=== PATIENT | male | born 1930 | race Caucasian/White ===

== ENCOUNTER 2017-03-11 23:36 | Inpatient (IN) | payer MEDICARE, OTHER ==
[2017-03-12] MEDS ORDERED: NS 0.9% 1000 ML* 1,000 ML IV SCH ×2 (00:30→04:15)
[2017-03-12] MEDS ORDERED: cefTRIAXone(*) 1 GM in NS 0.9% 50 ML* 50 ML IVPB ONE (01:24)
[2017-03-12] MEDS ORDERED: Azithromycin IV(*) 500 MG in NS 0.9% 250 ML* 250 ML IVPB ONE (01:24)
[2017-03-12 01:51] LABS: Hematocrit 36 % (42-52); Hemoglobin 11.5 g/dl (14.0-18.0); Mean Corpuscular HGB Conc 32 g/dl (31-36); Mean Corpuscular Hemoglobin 26 pg (27-31); Mean Corpuscular Volume 79 fL (80-94); Mean Platelet Volume 7 um3 (7.4-10.4); Red Cell Distribution Width 18 % (10.5-15); White Blood Count 8.4 10^3/ul (3.5-10.8)
[2017-03-12 01:52] LABS: Add Diff/Slide Review? Slide Review Added; Comments Flag Yes
[2017-03-12 02:02] LABS: Albumin 3.2 g/dL (3.2-5.2); BUN/Creatinine Ratio 17.9 (8-20); C Reactive Protein 48.92 mg/L (< 5.00); Calcium 8.6 mg/dL (8.6-10.3); EGFR African American 61.9 (>60); EGFR Non-African American 48.2 (>60); Globulin 2.6 g/dL (2-4); Magnesium 1.2 mg/dL (1.9-2.7); Potassium 3.7 mmol/L (3.5-5.0); Total Bilirubin 1.3 mg/dL (0.2-1.0); Total Protein 5.8 g/dL (6.4-8.9)
[2017-03-12 02:06] LABS: Troponin I 0.04 ng/mL (<0.04)
[2017-03-12] MEDS ORDERED: Magnesium Sulfate 2 GM IV* 2 GM/50 ML BAG IVPB ONE (02:29)
--- NOTE | 2017-03-12 02:36 | ED ---
Jeanette Carroll Salem, scribed for Yazan Duffy MD on 03/12/17 at 0016 . Syncope/Near Syncope - HPI Summary HPI Summary: Patient is a 86 y/o M who presents to the ED per EMS with weakness since earlier today. His reports that he usually walks with a walker, but today his legs gave out and he fell. She denies trauma, head injury, or LOC, but reports prolonged loss of appetite. Pt has a hx of cataract surgery. states that she does not want him to be checked into a senior living. - History Of Current Complaint Chief Complaint: EDGeneral Hx Obtained From: Family/Printed [employer] Designer - . Onset/Duration: Gradual Onset, Lasting Hours, Still Present Timing: Constant Context: Witnessed Activity At Onset: Other - Walking. Associated Head Trauma: No Aggravating Factor(s): Nothing Alleviating Factor(s): Nothing Associated Signs And Symptoms: Negative - Allergies/Home Medications Allergies/Adverse Reactions: Allergies Allergy/AdvReac Type Severity Reaction Status Date / Time ENVIRONMENTAL/SEASONAL AdvReac Intermediate Sneezing Uncoded 09/08/16 15:35 HAYFEVER PMH/Surg Hx/FS Hx/Imm Hx Endocrine/Hematology History: Reports: Hx Anticoagulant Therapy, Hx Diabetes Denies: Hx Thyroid Disease Cardiovascular History: Reports: Hx Congestive Heart Failure, Hx Coronary Artery Disease, Hx Hypercholesterolemia, Hx Hypertension, 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), Other Cardiovascular Problems/ Disorders - avr bovine replacement Denies: Hx Peripheral Vascular Disease Respiratory History: Reports: Hx Pulmonary Edema, Hx Sleep Apnea - WEARS CPAP Q HS GI History: Reports: Hx Gastroesophageal Reflux Disease, Hx Hiatal Hernia History: Reports: Hx Kidney Stones Denies: Hx Renal Disease Musculoskeletal History: Reports: Hx Tendonitis - RIGHT SHOULDER Denies: Hx Arthritis, Hx Osteoporosis Sensory History: Reports: Hx Cataracts, Hx Contacts or Glasses, Hx Vision Problem, Hx Hearing Aid, Hx Hearing Problem Opthamlomology History: Reports: Hx Cataracts, Hx Contacts or Glasses, Hx Vision Problem Neurological History: Reports: Other Neuro Impairments/Disorders - HX OF SUBDURAL HEMATOMA 06/14/13 Denies: Hx Headaches, Hx Seizures, Hx Transient Ischemic Attacks (TIA) Psychiatric History: Reports: Hx Depression - Cancer History Cancer Type, Location and Year: SKIN CANCER EXCESION FROM [facility] - Surgical History Surgery Procedure, Year, and Place: TONSILLECTOMY AGE 21, [place]. 2002 [place]GUINAL [place] [facility] [place] RIGHT KNEE TOTAL REPLACEMENT, [facility] [place]. 2006 BILATERAL CATARACT EXTRACTION WITH IOL IMPLANT, [facility] [place]. 2005 COLONOSCOPY, [facility] [place]. 2007 & 2008 CARDIAC CATHERIZATION X 2, [facility] [place]. 2008 AORTIC VALVE REPLACEMENT, [facility]. 2007 ENDOSCOPY, [facility] [place]. 2012 SKIN CANCER REMOVED FROM [place] , [facility] [place]x Anesthesia Reactions: No - Immunization History Date of Tetanus Vaccine: Unk Date of Influenza Vaccine: Fall 2014 Infectious Disease History: No Infectious Disease History: Denies: Traveled Outside the [place] in Last 30 Days - Family History Known Family History: Positive: Other - EMPHYSEMA, CVA - Social History Alcohol Use: Occasionally Hx Substance Use: No Substance Use Type: Reports: None Hx Tobacco Use: Yes - QUIT IN 1969 Smoking Status (MU): Former Smoker Review of Systems Negative: Fever Positive: Other - Loss of appetite. Neurological: Other - No LOC. Positive: Weakness All Other Systems Reviewed And Are Negative: Yes Physical Exam Triage Information Reviewed: Yes Vital Signs On Initial Exam: Initial Vitals Temp Pulse Resp BP Pulse Ox 98.6 F 76 18 110/57 97 03/11/17 23:44 03/11/17 23:44 03/11/17 23:44 03/11/17 23:44 03/11/17 23:44 Vital Signs Reviewed: Yes Appearance: Positive: Well-Appearing, No Pain Distress Skin: Positive: Warm, Skin Color Reflects Adequate Perfusion, Dry Head/Face: Positive: Normal Head/Face Inspection Eyes: Positive: EOMI, VINCE ENT: Positive: Other - Hard of hearing. DMM. Neck: Positive: Supple, Nontender Respiratory/Lung Sounds: Positive: Clear to Auscultation, Breath Sounds Present Cardiovascular: Positive: RRR Abdomen Description: Positive: Nontender, Soft Bowel Sounds: Positive: Present Musculoskeletal: Positive: Other - Moves all extremities. Neurological: Positive: Normal, Sensory/Motor Intact, Alert, Oriented to Person Place, Time Psychiatric: Positive: Affect/Mood Appropriate Diagnostics - Vital Signs Vital Signs Temp Pulse Resp BP Pulse Ox 03/11/17 23:44 98.6 F 76 18 110/57 97 - Laboratory Lab Results: Lab Results 03/12/17 03/12/17 03/12/17 Range/Units 01:30 01:30 01:30 WBC 8.4 (3.5-10.8) 10^3/ul RBC 4.50 (4.0-5.4) 10^6/ul Hgb 11.5 L (14.0-18.0) g/dl Hct 36 L (42-52) % MCV 79 L (80-94) fL MCH 26 L (27-31) pg MCHC 32 (31-36) g/dl RDW 18 H (10.5-15) % Plt Count 277 (150-450) 10^3/ul MPV 7 L (7.4-10.4) um3 Neut % (Auto) 77.4 (38-83) % Lymph % (Auto) 11.3 L (25-47) % [place] % (Auto) 9.5 H (1-9) % Eos % (Auto) 0.9 (0-6) % Baso % (Auto) 0.9 (0-2) % Absolute Neuts (auto) 6.5 (1.5-7.7) 10^3/ul Absolute Lymphs (auto) 1.0 (1.0-4.8) 10^3/ul Absolute Monos (auto) 0.8 (0-0.8) 10^3/ul Absolute Eos (auto) 0.1 (0-0.6) 10^3/ul Absolute Basos (auto) 0.1 (0-0.2) 10^3/ul Absolute Nucleated RBC 0 10^3/ul Nucleated RBC % 0 INR (Anticoag Therapy) 1.12 H (0.89-1.11) APTT 30.7 (26.0-36.3) seconds Sodium 136 (133-145) mmol/L Potassium 3.7 (3.5-5.0) mmol/L Chloride 99 L (101-111) mmol/L Carbon Dioxide 28 (22-32) mmol/L Anion Gap 9 (2-11) mmol/L BUN 25 H (6-24) mg/dL Creatinine 1.40 H (0.67-1.17) mg/dL Est GFR ( Amer) 61.9 (>60) Est GFR (Non-Af Amer) 48.2 (>60) BUN/Creatinine Ratio 17.9 (8-20) Glucose 113 H (70-100) mg/dL Lactic Acid (0.5-2.0) mmol/L Calcium 8.6 (8.6-10.3) mg/dL Magnesium 1.2 L (1.9-2.7) mg/dL Total Bilirubin 1.30 H (0.2-1.0) mg/dL AST 225 H (13-39) U/L ALT 118 H (7-52) U/L Alkaline Phosphatase 122 H (34-104) U/L Total Creatine Kinase 21 (10-223) U/L CK-MB (CK-2) 1.1 (0.6-6.3) ng/mL Troponin I 0.04 H* (<0.04) ng/mL C-Reactive Protein 48.92 H (< 5.00) mg/L B-Natriuretic Peptide ( - 100) pg/mL Total Protein 5.8 L (6.4-8.9) g/dL Albumin 3.2 (3.2-5.2) g/dL Globulin 2.6 (2-4) g/dL Albumin/Globulin Ratio 1.2 (1-3) Lipase 13 (11.0-82.0) U/L TSH Pending 03/12/17 03/12/17 Range/Units 01:30 01:30 WBC (3.5-10.8) 10^3/ul RBC (4.0-5.4) 10^6/ul Hgb (14.0-18.0) g/dl Hct (42-52) % MCV (80-94) fL MCH (27-31) pg MCHC (31-36) g/dl RDW (10.5-15) % Plt Count (150-450) 10^3/ul MPV (7.4-10.4) um3 Neut % (Auto) (38-83) % Lymph % (Auto) (25-47) % [place] % (Auto) (1-9) % Eos % (Auto) (0-6) % Baso % (Auto) (0-2) % Absolute Neuts (auto) (1.5-7.7) 10^3/ul Absolute Lymphs (auto) (1.0-4.8) 10^3/ul Absolute Monos (auto) (0-0.8) 10^3/ul Absolute Eos (auto) (0-0.6) 10^3/ul Absolute Basos (auto) (0-0.2) 10^3/ul Absolute Nucleated RBC 10^3/ul Nucleated RBC % INR (Anticoag Therapy) (0.89-1.11) APTT (26.0-36.3) seconds Sodium (133-145) mmol/L Potassium (3.5-5.0) mmol/L Chloride (101-111) mmol/L Carbon Dioxide (22-32) mmol/L Anion Gap (2-11) mmol/L BUN (6-24) mg/dL Creatinine (0.67-1.17) mg/dL Est GFR ( Amer) (>60) Est GFR (Non-Af Amer) (>60) BUN/Creatinine Ratio (8-20) Glucose (70-100) mg/dL Lactic Acid 0.9 (0.5-2.0) mmol/L Calcium (8.6-10.3) mg/dL Magnesium (1.9-2.7) mg/dL Total Bilirubin (0.2-1.0) mg/dL AST (13-39) U/L ALT (7-52) U/L Alkaline Phosphatase (34-104) U/L Total Creatine Kinase (10-223) U/L CK-MB (CK-2) (0.6-6.3) ng/mL Troponin I (<0.04) ng/mL C-Reactive Protein (< 5.00) mg/L B-Natriuretic Peptide 263 H ( - 100) pg/mL Total Protein (6.4-8.9) g/dL Albumin (3.2-5.2) g/dL Globulin (2-4) g/dL Albumin/Globulin Ratio (1-3) Lipase (11.0-82.0) U/L TSH Result Diagrams: 03/12/17 01:30 03/12/17 01:30 Diagnostic Studies Comment: Trop 1: 0.04 Lab Statement: Any lab studies that have been ordered have been reviewed, and results considered in the medical decision making process. - Radiology CXR Radiology Interpretation Completed By: ED Physician - Right lower inflitrate. - CT BRAIN CT Interpretation Completed By: Radiologist - Impression: Area of low attenuation within the brainstem is nonspecific possibly reflecting an area of inflammation or mass. Follow-up MRI with vascular contrast and diffusion- weighted imaging is recommended for further evaluation. - EKG 0111 EKG Interpretation: A Fib @ [address] bpm with PVCs. No ST changes. Course/Dx Course Of Treatment: NO CRITICAL CARE TIME. ADMIT HOSPITALIST STABLE. - Diagnoses Provider Diagnoses: Weakness, Pneumonia - Physician Notifications Discussed Care of Patient With: Ghanshyam Maldonado Time Discussed With Above Provider: 02:01 Instructed by Provider To: Admit As Inpatient Admit/Transition Orders Completed By ED Provider: Yes Discharge - Discharge Plan Condition: Stable Disposition: ADMITTED TO [facility] Referrals: Lance Leonard MD [Primary Care Provider] - The documentation as recorded by the Jeanette salcedo Salem accurately reflects the service I personally performed and the decisions made by me, Yazan Duffy MD.
[2017-03-12 02:38] LABS: TSH (Thyroid Stimulating Horm) 3.2 mcIU/mL (0.34-5.60)
[2017-03-12] MEDS ORDERED: Dextrose 50% Syringe 50 ML* 25 GM/50 ML SYRINGE IV PUSH PRN (04:07)
[2017-03-12] MEDS: Heparin VIAL(*) 5000 UNITS/ML VIAL (FIVE THOUSAND) SUBCUT SCH ×3 (05:58→20:40)
--- NOTE | 2017-03-12 06:12 | HP ---
CC: Dr. Lance Leonard* HISTORY AND PHYSICAL: DATE OF ADMISSION: 03/12/17 PRIMARY CARE PHYSICIAN: Dr. Lance Leonard. CHIEF COMPLAINT: Weakness. HISTORY OF PRESENT ILLNESS: Please note that the entire history is gotten via the ER doctor as the is not here and cannot be contacted at this time and the patient himself is unable to give me any information. It is difficult to say if it is from his hearing or if he is having difficulty comprehending. Either way, he does not respond to my questions. The patient apparently has had weakness that has been getting worse and worse at home. He usually walks with a walker, but today apparently his legs finally gave out and he could not walk with his walker and his had to call EMS to take him to the ER. His is apparently very concerned because she says she is no longer able to care for him appropriately and she does want him in a intermediate and gets very tearful. The patient himself has no complaints, but again it is unclear if he clearly comprehends. There was no trauma as per the , but he has not been eating well at all for some time now. PAST MEDICAL HISTORY: Significant for nephrolithiasis, diabetes mellitus, hypertension, GERD, atrial fibrillation, history of subdural hematoma in the setting of fall while on anticoagulation, hyperlipidemia, and depression. PAST SURGICAL HISTORY: AV valve replacement in 1999, bovine; cataract surgery. CURRENT MEDICATIONS: As follows: 1. Furosemide 60 mg daily. 2. Co-enzyme Q10 200 mg daily. 3. Metoprolol tartrate 50 mg twice daily. 4. isosorbide 30 mg daily. 5. Oxybutynin 10 mg daily. 6. Omeprazole 20 mg twice daily. 7. Metformin ER 500 mg twice daily. 8. Cholecalciferol 2000 units daily. 9. Aspirin 81 mg daily. 10. Plavix 75 mg daily. 11. Atorvastatin 40 mg daily. 12. Sertraline 150 mg daily. 13. Potassium chloride 20 mEq daily. ALLERGIES: No known drug allergies. FAMILY HISTORY: Father had emphysema. Mother had CVA. SOCIAL HISTORY: Ex-tobacco. No alcohol or recreational drug use. He is . His is his healthcare proxy. REVIEW OF SYSTEMS: Unable to obtain from the patient, because again see above. PHYSICAL EXAMINATION GENERAL: A pleasant gentleman, looking dry, sitting up in bed, in no acute distress. VITAL SIGNS: Blood pressure 112/55, pulse oxygenation 93% on room air, respiratory rate 12 breaths per minute, heart rate 70 beats per minute, temperature is 98.6 degrees. HEENT: Normocephalic, atraumatic. Dry mucous membranes. NECK: Supple. No JVD, bruits, palpable thyroid, or lymphadenopathy. CHEST: Clear to auscultation and percussion bilaterally. CARDIOVASCULAR: S1, S2 appreciated. Regular rate. ABDOMEN: Positive bowel sounds in all 4 quadrants. Soft, nontender, and nondistended. EXTREMITIES: No cyanosis, clubbing, or edema. +2 peripheral pulses bilaterally. NEURO: He seems alert, unable to . He moves all extremities. SKIN: Poor skin turgor, dry. DIAGNOSTIC STUDIES/LAB DATA: INR 1.12. White count 8.4, hemoglobin 11.5, hematocrit 36, platelets 277. Sodium 136, potassium 3.7, chloride 99, CO2 28, BUN 25, creatinine 1.40, glucose 113. AST 25, ALT 118, alk phos 122. Troponin 0.04. BNP is 263. Chest x-ray shows cardiomegaly, large right pleural effusion. Brain CT was read by the nighttime radiologist, who stated impression: Area of low attenuation with the brain stem, nonspecific, possibly reflecting an area of inflammation or mass. Follow up MRI with vascular, contrast, and diffuse weighted images is recommended for further evaluation. ASSESSMENT AND PLAN: 1. Weakness, inability to walk. Uncertain etiology, could just be progressive , could be more acute. Certainly, the brain stem possible mass is of concern and we will order MRI as recommended by Radiology. I am also concerned about his abnormal LFTs and we will get an abdominal ultrasound and hepatitis profile as well. I will also hydrate the patient with normal saline 100 cc an hour as he appears quite dry and he has not been eating. I will also get a Social Work consult on the patient. 2. Diabetes mellitus. Hold metformin. Fingersticks with sliding scale insulin. 3. Hypertension. Currently, well controlled. Continue current regimen. Adjust medications accordingly. 4. Depression. Continue Zoloft. 5. Hyperlipidemia. Continue statin, appears stable. 6. FEN. Consistent carb diet. 7. DVT prophylaxis. Heparin subcu. 8. The patient is a full code. TIME SPENT: Over 75 minutes was spent on this H and P; more than 40 minutes of which was spent in direct [id number] contact with the patient in evaluation, physical exam, counseling, and coordination of care. [id number]/[facility] #: [id number] CLARENCED
[2017-03-12] MEDS: Insulin LISPRO* 1 UNITS UNIT SUBCUT SCH ×4 (07:38→20:39)
--- NOTE | 2017-03-12 07:52 | RAD ---
HISTORY: Weakness COMPARISONS: September 08, 2016 TECHNIQUE: Multiple contiguous axial CT scans were obtained of the head without intravenous contrast. FINDINGS: HEMORRHAGE/INFARCT: There is no hemorrhage or acute infarct. MASSES/SHIFT: There is no mass or shift. EXTRA-AXIAL SPACES: There are no extra-axial fluid collections. SULCI AND VENTRICLES: There is diffuse and proportional enlargement of the sulci and ventricles. CEREBRUM: There is mild hypoattenuation of the periventricular and subcortical white matter. BRAINSTEM: There is focal low attenuation within the brainstem on axial image 9 CEREBELLUM: There are no focal parenchymal abnormalities. VESSELS: The vessels are grossly normal. PARANASAL SINUSES: The paranasal sinuses are clear. ORBITS: The orbits are unremarkable. BONES AND SOFT TISSUE: No bone or soft tissue abnormalities are noted. OTHER: None IMPRESSION: 1. FOCAL LOW ATTENUATION OF THE BRAINSTEM. WHILE THIS MAY BE ARTIFACTUAL, AN AREA OF EDEMA OR INFARCT MAY GIVE A SIMILAR APPEARANCE. CONSIDER FURTHER EVALUATION WITH CONTRAST ENHANCED MRI OF THE BRAIN. 2. PRELIMINARY FINDINGS WERE DISCUSSED WITH DR. CAROLINA BY DR. SPENCER AT APPROXIMATELY 1:28 AM ON NOVEMBER 12, 2016
--- NOTE | 2017-03-12 07:54 | RAD ---
HISTORY: Weakness COMPARISONS: November 06, 2016 VIEWS:1: Single frontal portable view of the chest at 1:05 AM FINDINGS: LINES AND TUBES: None. CARDIOMEDIASTINAL SILHOUETTE: The cardiomediastinal silhouette is normal for portable technique. PLEURA: There is a moderate right pleural effusion. LUNG PARENCHYMA: There is confluent alveolar opacification of the right lung base. ABDOMEN: The upper abdomen is clear. There is no subphrenic gas. BONES AND SOFT TISSUES: The patient is status post median sternotomy. IMPRESSION: RIGHT PLEURAL EFFUSION WITH RIGHT BASILAR ATELECTASIS VERSUS CONSOLIDATION
[2017-03-12] MEDS ORDERED: Potassium Chlor TAB* 20 MEQ TAB.ER PO SCH (08:30)
[2017-03-12] MEDS ORDERED: Atorvastatin* 40 MG TAB PO SCH (09:00)
[2017-03-12] MEDS: Potassium Chloride LIQUID* 20 MEQ PACKET PO SCH (09:13)
[2017-03-12] MEDS: Clopidogrel TAB* 75 MG PO SCH (09:16)
[2017-03-12] MEDS: Aspirin EC Low Dose* 81 MG TAB.EC PO SCH (09:16)
[2017-03-12] MEDS: Sertraline* 50 MG TAB PO SCH (09:19)
[2017-03-12] MEDS: Oxybutynin XL TAB* 5 MG PO SCH (09:20)
[2017-03-12] MEDS: Isosorbide Mononitrate ER TAB* 30 MG PO SCH (09:20)
[2017-03-12] MEDS: Cholecalciferol TAB* 1000 UNITS PO SCH (09:22)
[2017-03-12] MEDS: CMCS: Pantoprazole TAB (NF) 40 MG TAB PO SCH ×2 (09:23→20:39)
[2017-03-12] MEDS: Metoprolol Tartrate TAB* 25 MG PO SCH ×3 (09:42→17:05)
[2017-03-12] MEDS: Magnesium Oxide TAB* 400 MG PO SCH (09:50)
--- NOTE | 2017-03-12 10:09 | PN ---
Subjective Date of Service: 03/12/17 Interval History: Mr. Tapia communicates in a limited fashion but says that he is fine. Objective Active Medications: Aspirin (Aspirin Ec Low Dose*) 81 mg PO DAILY [facility] Atorvastatin Calcium (Lipitor*) 40 mg PO DAILY [facility] Cholecalciferol (Vitamin D Tab*) 2,000 units PO DAILY DEQUAN Clopidogrel Bisulfate (Plavix Tab*) 75 mg PO DAILY [facility] Dextrose (D50w Syringe 50 Ml*) 12.5 gm IV PUSH .FOR FS < 60 - SS PRN Heparin Sodium (Porcine) (Heparin Vial(*)) 5,000 units SUBCUT Q8HR DEQUAN Sodium Chloride (Ns 0.9% 1000 Ml*) 1,000 mls @ 100 mls/hr IV PER RATE [facility] Insulin Human Lispro (Humalog*) 0 units SUBCUT ACHS DE[facility] Isosorbide Mononitrate (Imdur Er Tab*) 30 mg PO DAILY [facility] Magnesium Oxide (Magox 400 Tab*) 400 mg PO DAILY [facility] Metoprolol Tartrate (Lopressor Tab*) 50 mg PO BID WITH MEALS DEQUAN Oxybutynin Chloride (Ditropan Xl Tab*) 10 mg PO DAILY DEQU[facility] Pantoprazole Sodium (Protonix Tab (Nf)) 40 mg PO BID DEQUAN Potassium Chloride (Klor-Con Liquid*) 20 meq PO DAILY WITH MEAL DEQUAN Sertraline HCl (Zoloft*) 150 mg PO QAM [facility] Vital Signs 03/12/17 03/12/17 03/12/17 04:30 05:05 05:13 Temperature 98.1 F 98.1 F Pulse Rate 66 78 78 Respiratory 15 16 16 Rate Blood Pressure 116/45 124/46 124/46 (mmHg) O2 Sat by Pulse 96 97 97 Oximetry 03/12/17 03/12/17 05:16 07:23 Temperature 96.0 F Pulse Rate 68 66 Respiratory 16 Rate Blood Pressure 128/50 (mmHg) O2 Sat by Pulse 98 Oximetry Oxygen Devices in Use Now: None Appearance: Elderly male sitting up in bed in NAD Eyes: No Scleral Icterus Ears/Nose/Mouth/Throat: Mucous Membranes Moist Neck: NL Appearance and Movements; NL JVP, Trachea Midline Respiratory: Symmetrical Chest Expansion and Respiratory Effort, Clear to Auscultation Cardiovascular: NL Sounds; No Murmurs; No JVD, No Edema Abdominal: NL Sounds; No Tenderness; No Distention Lymphatic: No Cervical Adenopathy Extremities: No Edema Skin: No Rash or Ulcers Neurological: - - Alert, knows his name and states that he is "on the fourth floor." He is not able to answer further questions, question if significant hearing loss. Follows commands for hand shake and has strong driver supervisor with no pronator drift. Does not follow commands to move legs, but minimal spontaneous movement noted during exam. Face symmetrical. Nutrition: Taking PO's Result Diagrams: 03/12/17 01:30 03/12/17 01:30 Additional Lab and Data: Lab Results 03/12/17 03/12/17 03/12/17 Range/Units 01:30 01:30 01:30 WBC 8.4 (3.5-10.8) 10^3/ul RBC 4.50 (4.0-5.4) 10^6/ul Hgb 11.5 L (14.0-18.0) g/dl Hct 36 L (42-52) % MCV 79 L (80-94) fL MCH 26 L (27-31) pg MCHC 32 (31-36) g/dl RDW 18 H (10.5-15) % Plt Count 277 (150-450) 10^3/ul MPV 7 L (7.4-10.4) um3 Neut % (Auto) 77.4 (38-83) % Lymph % (Auto) 11.3 L (25-47) % [place] % (Auto) 9.5 H (1-9) % Eos % (Auto) 0.9 (0-6) % Baso % (Auto) 0.9 (0-2) % Absolute Neuts (auto) 6.5 (1.5-7.7) 10^3/ul Absolute Lymphs (auto) 1.0 (1.0-4.8) 10^3/ul Absolute Monos (auto) 0.8 (0-0.8) 10^3/ul Absolute Eos (auto) 0.1 (0-0.6) 10^3/ul Absolute Basos (auto) 0.1 (0-0.2) 10^3/ul Absolute Nucleated RBC 0 10^3/ul Nucleated RBC % 0 INR (Anticoag Therapy) 1.12 H (0.89-1.11) APTT 30.7 (26.0-36.3) seconds Sodium 136 (133-145) mmol/L Potassium 3.7 (3.5-5.0) mmol/L Chloride 99 L (101-111) mmol/L Carbon Dioxide 28 (22-32) mmol/L Anion Gap 9 (2-11) mmol/L BUN 25 H (6-24) mg/dL Creatinine 1.40 H (0.67-1.17) mg/dL Est GFR ( Amer) 61.9 (>60) Est GFR (Non-Af Amer) 48.2 (>60) BUN/Creatinine Ratio 17.9 (8-20) Glucose 113 H (70-100) mg/dL Lactic Acid (0.5-2.0) mmol/L Calcium 8.6 (8.6-10.3) mg/dL Magnesium 1.2 L (1.9-2.7) mg/dL Total Bilirubin 1.30 H (0.2-1.0) mg/dL AST 225 H (13-39) U/L ALT 118 H (7-52) U/L Alkaline Phosphatase 122 H (34-104) U/L Total Creatine Kinase 21 (10-223) U/L CK-MB (CK-2) 1.1 (0.6-6.3) ng/mL Troponin I 0.04 H* (<0.04) ng/mL C-Reactive Protein 48.92 H (< 5.00) mg/L B-Natriuretic Peptide ( - 100) pg/mL Total Protein 5.8 L (6.4-8.9) g/dL Albumin 3.2 (3.2-5.2) g/dL Globulin 2.6 (2-4) g/dL Albumin/Globulin Ratio 1.2 (1-3) Lipase 13 (11.0-82.0) U/L TSH Pending 03/12/17 03/12/17 Range/Units 01:30 01:30 WBC (3.5-10.8) 10^3/ul RBC (4.0-5.4) 10^6/ul Hgb (14.0-18.0) g/dl Hct (42-52) % MCV (80-94) fL MCH (27-31) pg MCHC (31-36) g/dl RDW (10.5-15) % Plt Count (150-450) 10^3/ul MPV (7.4-10.4) um3 Neut % (Auto) (38-83) % Lymph % (Auto) (25-47) % [place] % (Auto) (1-9) % Eos % (Auto) (0-6) % Baso % (Auto) (0-2) % Absolute Neuts (auto) (1.5-7.7) 10^3/ul Absolute Lymphs (auto) (1.0-4.8) 10^3/ul Absolute Monos (auto) (0-0.8) 10^3/ul Absolute Eos (auto) (0-0.6) 10^3/ul Absolute Basos (auto) (0-0.2) 10^3/ul Absolute Nucleated RBC 10^3/ul Nucleated RBC % INR (Anticoag Therapy) (0.89-1.11) APTT (26.0-36.3) seconds Sodium (133-145) mmol/L Potassium (3.5-5.0) mmol/L Chloride (101-111) mmol/L Carbon Dioxide (22-32) mmol/L Anion Gap (2-11) mmol/L BUN (6-24) mg/dL Creatinine (0.67-1.17) mg/dL Est GFR ( Amer) (>60) Est GFR (Non-Af Amer) (>60) BUN/Creatinine Ratio (8-20) Glucose (70-100) mg/dL Lactic Acid 0.9 (0.5-2.0) mmol/L Calcium (8.6-10.3) mg/dL Magnesium (1.9-2.7) mg/dL Total Bilirubin (0.2-1.0) mg/dL AST (13-39) U/L ALT (7-52) U/L Alkaline Phosphatase (34-104) U/L Total Creatine Kinase (10-223) U/L CK-MB (CK-2) (0.6-6.3) ng/mL Troponin I (<0.04) ng/mL C-Reactive Protein (< 5.00) mg/L B-Natriuretic Peptide 263 H ( - 100) pg/mL Total Protein (6.4-8.9) g/dL Albumin (3.2-5.2) g/dL Globulin (2-4) g/dL Albumin/Globulin Ratio (1-3) Lipase (11.0-82.0) U/L TSH Assess/Plan/Problems-Billing Assessment: Mr Tapia is an 86 yo male with a PMH of DM, HTN, Afib, and a subdural hematoma from fall while on anticoagulaton who was admitted on 03/11/17 with weakness. - Patient Problems (1) Weakness Comment: Chronic and progressive per report. Will reach out to patient's for further details. ? of mass in brain stem on CT, MRI w/wo pending. Patient' s exam is seemingly limited by KIVALINA and ? refusal to participate today. Neuro checks q4h. (2) CKD stage 3 due to type 2 diabetes mellitus Comment: At baseline. (3) Afib Comment: Rate is controlled. Not on AC due to h/o SDH. (4) CAD (coronary artery disease) Comment: Asymptomatic. Continue plavix and aspirin. (5) Diabetes Comment: BG well controlled. Hold metformin, continue lispro SSI coverage with meals. (6) HTN (hypertension) Comment: Controlled. Continue Isosorbide and Metoprolol. Furosemide on hold as patient appeared dehydrated on arrival. Resume in AM. (7) Hyperlipidemia Comment: Continue atorvastatin. (8) DVT prophylaxis Comment: Heparin SQ. (9) Full code status
[2017-03-12] MEDS ORDERED: Gadoteridol* (CONTRAST) 279.3 MG/ML 10 ML IV ONE (11:02)
[2017-03-12] MEDS ORDERED: Gadoteridol* (CONTRAST) 279.3 MG/ML 10 ML IV SCH (11:02)
--- NOTE | 2017-03-12 11:16 | RAD ---
HISTORY: Abnormal CT of the brain COMPARISONS: Head CT dated March 12, 2017 TECHNIQUE: The following sequences were obtained of the head: Sagittal T1-weighted images, axial T2-weighted images, axial FLAIR images, axial susceptibility weighted images, axial T1-weighted images. Additionally, axial diffusion-weighted images were obtained with calculated apparent diffusion coefficients. Additionally, sagittal, coronal, and axial T1-weighted images were obtained after contrast enhancement with a gadolinium-based intravenous contrast agent. FINDINGS: HEMORRHAGE/INFARCT: There is no hemorrhage or acute infarct. MASSES/SHIFT: There is no mass or shift. EXTRA-AXIAL SPACES/MENINGES: There are no extra-axial fluid collections. SULCI AND VENTRICLES: There is diffuse and proportional enlargement of the sulci and ventricles. CEREBRUM: There are multiple scattered small foci of elevated T2/FLAIR signal within the periventricular and subcortical white matter. There are chronic lacunar infarcts of the basal ganglia bilaterally. BRAINSTEM: There is elevated T2/FLAIR signal within the pontine white matter. CEREBELLUM: There are no focal parenchymal abnormalities. The cerebellar tonsils are normal in size and position. SELLA: The sella is normal. PINEAL: The pineal region is clear. CP ANGLE/TEMPORAL BONES: The labyrinthine structures are grossly normal. VESSELS: Normal flow-voids are noted within the visualized vertebral vasculature. DIFFUSION ABNORMALITIES: There are no diffusion abnormalities. PARANASAL SINUSES/MASTOIDS: The paranasal sinuses are clear. There are small bilateral mastoid effusions.. ORBITS: The orbits are unremarkable. BONES AND SOFT TISSUE: No bone or soft tissue abnormalities are noted. OTHER: There is no abnormal enhancement. IMPRESSION: 1. 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 2. SMALL BILATERAL MASTOID EFFUSIONS. 3. THERE IS NO MRI ABNORMALITY TO CORRESPOND TO THE LOW ATTENUATION NOTED ON PREVIOUS CT WHICH IS LIKELY ARTIFACTUAL.
--- NOTE | 2017-03-12 13:45 | RAD ---
INDICATION: Abnormal liver function tests. COMPARISON: Comparison is made with a prior CT of the abdomen and pelvis from September 08, 2016 and a prior renal and bladder ultrasound from November 11, 2014. TECHNIQUE: Multiple real-time images of the abdomen were obtained. FINDINGS: The liver is normal in size and echogenicity without significant focal abnormality. There are multiple gallstones and sludge present. No gallbladder wall thickening or pericholecystic fluid is seen. No sonographic Alberto sign is present. No intra or extrahepatic ductal distention is present. The common bile duct measured 0.2 cm in diameter. The pancreas is partially obscured by overlying bowel gas. The kidneys are normal in size shape and echogenicity. The right kidney measured 10.8 x 5.3 x 5.6 cm and the left kidney measured 11.9 x 5.9 x 5.5 cm. No hydronephrosis is seen. There are cysts present in the mid and inferior pole of the left kidney measuring 2.8 x 1.8 x 1.9 and 3.2 x 2.8 x 2.5 cm each. The spleen is enlarged measuring 15.1 x 6.9 x 13.7 cm. The abdominal aorta is normal in caliber. There is calcific plaque throughout. There is a large right pleural effusion. IMPRESSION: 1. LARGE RIGHT PLEURAL EFFUSION. 2. CHOLELITHIASIS. 3. SPLENOMEGALY.
[2017-03-12 16:10] LABS: Urine Bacteria Absent (Absent); Urine Bilirubin Negative (Negative); Urine Glucose Negative (Negative); Urine Nitrite Negative (Negative)
[2017-03-12] MEDS ORDERED: Iodixanol* (CONTRAST) 320 MG/ML 100 ML SDV IV ONE (16:53)
[2017-03-12] MEDS ORDERED: Iodixanol 320 (CONTRAST) 100 ML SDV IV ONE (16:56)
--- NOTE | 2017-03-12 17:57 | RAD ---
INDICATION: Pleural effusion, splenomegaly, elevated liver function tests. COMPARISON: Comparison is made with a prior abdominal ultrasound from March 12, [address] of the abdomen and pelvis from September 08, 2016. TECHNIQUE: A CT scan of the chest, abdomen and pelvis was performed with intravenous and without oral contrast following intravenous injection of 82 ml of Visipaque 320 nonionic contrast. Contiguous axial sections were obtained from the lung apices through the symphysis pubis. Images were reconstructed in the coronal and sagittal planes. FINDINGS: There is a moderate to large right pleural effusion. There is an infiltrate present in the right lower lobe likely representing atelectasis although along the inferior portion of the infiltrate there are more rounded densities possibly representing round atelectasis although a mass cannot be excluded. The largest area measures 6.2 x 4.7 cm in size. There is subsegmental atelectasis in the left lower lobe. There is an enlarged precarinal lymph node measuring 1.8 cm in transverse dimension. No other enlarged mediastinal or hilar lymph nodes are seen. The patient is status post sternotomy and aortic valve replacement surgery. The heart is mildly enlarged. No pericardial effusion is present. The thoracic aorta is normal in caliber. The liver is normal in size without significant focal abnormality. There are multiple small calcified gallstones. The gallbladder does not appear distended. The spleen is mildly enlarged. The pancreas appears to be within normal limits. The kidneys and adrenal glands are normal in size. There is no evidence for hydronephrosis. There is suggestion of a small nonobstructing calculus in the midportion of the right kidney measuring 0.4 cm in size. There are left renal cysts present. The aorta is normal in caliber and there is severe calcific plaque present. No significant enlarged retroperitoneal lymph nodes are seen. The stomach, small and large bowel appear nondistended. The appendix is not visualized. There is no evidence for diverticulitis or colitis. No free intraperitoneal air or fluid is seen. There is a moderate compression fracture of the superior endplate of the L2 vertebral body which is progressed slightly from a prior CT of the lumbar spine from September 08, 2016. There is also a new mild compression fracture of the superior endplate of the L3 vertebral body. IMPRESSION: 1. MODERATE TO LARGE RIGHT PLEURAL EFFUSION. 2. INCREASED DENSITY IN THE RIGHT LOWER LOBE LIKELY REPRESENTING ATELECTASIS. ALONG THE INFERIOR ASPECT OF THE RIGHT LOWER LOBE THIS BECOMES MORE ROUNDED IN SHAPE POSSIBLY REPRESENTING A MASS VERSUS ROUND ATELECTASIS. 3. ENLARGED MEDIASTINAL LYMPH NODE. 4. CHOLELITHIASIS. 5. MILD SPLENOMEGALY. 6. SUBACUTE TO CHRONIC COMPRESSION FRACTURES OF THE L2 AND L3 VERTEBRA.
--- NOTE | 2017-03-12 21:13 | CONS ---
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 According to the who provides most of the history and the daughter who are at the bedside, the patient has been able to shuffle ambulate with a walker, but recently has been sleeping more, decreased in appetite, has fallen, and more lethargic. She could not care for him at home and was concerned for his lethargy and called the EMS to bring him to the hospital for further evaluation. On arrival to the emergency room, the patient had labs, which showed elevated LFTs. His CAT scan was initially read as a possible mass. A followup MRI was unremarkable showing chronic ischemic infarcts and he was admitted for further evaluation. The patient has lost a significant amount of weight, he was 232, now about 177 up until about for the past year. He had a decrease in appetite. He does complain of intermittent abdominal pain. The patient is able to communicate with using a whiteboard. He denies any pain at this time. No shortness of breath and no nausea. The family states that he has been sleeping a lot more, but he is answering questions appropriately. Otherwise, remainder of review of systems is negative. PAST MEDICAL HISTORY: 1. History of nephrolithiasis. 2. Diabetes. 3. Hypertension. 4. GERD. 5. History of atrial fibrillation. 6. History of subdural hematoma in the setting of fall while on anticoagulation. 7. History of hyperlipidemia. 8. Depression. PAST SURGICAL HISTORY: 1. AV valve replacement in 1999. 2. Bovine and cataract surgery. INPATIENT MEDICATIONS: 1. Atorvastatin 40 mg daily. 2. Aspirin 81 mg daily. 3. Cholecalciferol 2000 units a day. 4. Plavix 75 mg p.o. daily. 5. Lasix 60 mg daily. 6. Heparin 5000 units subcu t.i.d. 7. Lispro sliding scale. 8. Isosorbide mononitrate 30 mg daily. 9. Magnesium oxide 400 mg daily. 10. Metoprolol tartrate 50 mg p.o. b.i.d. 11. Oxybutynin XL 10 mg p.o. daily. 12. Pantoprazole 40 mg p.o. b.i.d. 13. Potassium chloride 20 mEq daily. 14. Sertraline 150 mg daily. ALLERGIES: No known drug allergies. FAMILY HISTORY: Mother had a stroke. Father had emphysema. SOCIAL HISTORY: The patient lives at home with his , Bret, who is his health care proxy. He does ambulate with a walker, was getting help from her, who is 80 years of age with his ADL's. MOLST form is DNR/DNI. No history of tobacco, alcohol, or illicit drug use. REVIEW OF SYSTEMS: As mentioned in the HPI, limited due to the patient's limited ability to communicate. IMAGING STUDIES: An ultrasound of the abdomen shows large white pleural effusion, cholelithiasis, and splenomegaly. Brain MRI shows diffuse involutional changes, elevated T2-FLARE signal on the periventricular pontine, subcortical white matter with chronic lacunar infarcts at the basal ganglia bilaterally most consistent with small chronic small vessel ischemic change, and small bilateral mastoid effusions. No MRI abnormality that corresponds to low attenuation noted on the previous CT scan, which is likely artifacts. LABORATORY DATA: White count 8.4, hemoglobin 11.5, hematocrit 36, and platelets 277. INR 1.12. Sodium 136, potassium 3.7, chloride 99, bicarb 28, BUN 25, creatinine 1.4, glucose 113, and mag 1.2. Total bili 1.3, AST 225, ALT 118, and alk phos 122. Troponin 0.04. Albumin 3.2. Hepatitis panel negative. PHYSICAL EXAMINATION: Vital signs: Temp 97.2, pulse rate 56, respiratory rate 15, oxygen saturation 100% on room air, and blood pressure 118/36. General: No acute distress, frail, cachectic elderly male, with and daughter at bed- side. HEENT: Pupils are dilated and reactive, anicteric. Head, normocephalic. Oropharynx, his mucous membranes are moist. Neck: Supple. Respiratory: Diminished breath sounds. No wheezing, rhonchi, or rales. Cardiac: Irregularly regular rate and rhythm. Soft systolic murmur heard throughout. Abdomen: Soft and nontender. No masses appreciated. Extremities : No clubbing, cyanosis, or edema; +1 DP's. Neurologic: Alert and oriented x2. Oriented to place and self. No focal neurologic deficits. ASSESSMENT AND PLAN: This is an 86-year-old male with a past medical history of deafness, subdural hematoma, and a question of mild cognitive impairment with dysarthria, who presents with weakness, lethargy, and increase in his liver enzymes. I am concerned for encephalopathy and recommended checking an ammonia level. I think that further imaging to rule out an occult process in the setting of his weight loss and elevated LFTs is essential and further getting more clarity on the diagnosis for him. Depending on what is found, he may be an eligible candidate for hospice. The needs more resources at home and she is open to hospice if patient is eligible, but she would have to hire private aides as well, which she is willing to do. His MOLST form has been confirmed as DNR/DNI. I spoke with Cristine Millan NP, who is going to get further imaging depending on what that shows, repeating labs, and getting either Gastroenterology or Oncology involved to help with further prognostication. At this time, the patient does not have any pain. I did go ahead and discontinue his simvastatin in the setting of his elevated LFTs and put in for an ammonia level as well. Thank you for this consultation. I will follow along with you. PATIENT TIME: Greater than 90 minutes was spent doing the consultation, more than half the time was spent in direct patient contact. [id number]/CPS #: [id number] MTDD
[2017-03-13] MEDS: Heparin VIAL(*) 5000 UNITS/ML VIAL (FIVE THOUSAND) SUBCUT SCH ×3 (05:11→21:42)
[2017-03-13 07:28] LABS: Albumin 2.9 g/dL (3.2-5.2); BUN/Creatinine Ratio 19.1 (8-20); Calcium 8.5 mg/dL (8.6-10.3); EGFR African American 77.7 (>60); EGFR Non-African American 60.4 (>60); Globulin 2.6 g/dL (2-4); Potassium 3.3 mmol/L (3.5-5.0); Total Protein 5.5 g/dL (6.4-8.9)
--- NOTE | 2017-03-13 08:19 | PN ---
Subjective Date of Service: 03/13/17 Interval History: Mr. Tapia denies complaint today. He denies any pain. Objective Active Medications: Aspirin (Aspirin Ec Low Dose*) 81 mg PO DAILY [facility] Cholecalciferol (Vitamin D Tab*) 2,000 units PO DAILY [facility] Clopidogrel Bisulfate (Plavix Tab*) 75 mg PO DAILY [facility] Dextrose (D50w Syringe 50 Ml*) 12.5 gm IV PUSH .FOR FS < 60 - SS PRN Furosemide (Lasix Tab*) 60 mg PO DAILY [facility] Gadoteridol (Prohance* (Contrast)) 14 ml IV ONCE [facility] Heparin Sodium (Porcine) (Heparin Vial(*)) 5,000 units SUBCUT Q8HR [facility] Insulin Human Lispro (Humalog*) 0 units SUBCUT ACHS [facility] Isosorbide Mononitrate (Imdur Er Tab*) 30 mg PO DAILY [facility] Magnesium Oxide (Magox 400 Tab*) 400 mg PO DAILY [facility] Metoprolol Tartrate (Lopressor Tab*) 50 mg PO BID WITH MEALS [facility] Oxybutynin Chloride (Ditropan Xl Tab*) 10 mg PO DAILY [facility] Pantoprazole Sodium (Protonix Tab (Nf)) 40 mg PO BID [facility] Potassium Chloride (Klor-Con Liquid*) 20 meq PO DAILY WITH MEAL [facility] Sertraline HCl (Zoloft*) 150 mg PO QAM [facility] Vital Signs 03/12/17 03/12/17 03/12/17 11:15 12:15 14:17 Temperature 97.2 F Pulse Rate 74 66 56 Respiratory 16 16 15 Rate Blood Pressure 120/48 114/39 118/36 (mmHg) O2 Sat by Pulse 98 98 100 Oximetry 03/12/17 03/12/17 03/12/17 19:19 20:00 23:43 Temperature 97.5 F 97.4 F Pulse Rate 61 55 Respiratory 17 16 16 Rate Blood Pressure 111/39 134/42 (mmHg) O2 Sat by Pulse 96 99 Oximetry 03/12/17 03/13/17 03/13/17 23:51 03:43 07:32 Temperature 97.4 F Pulse Rate 51 61 Respiratory 18 16 15 Rate Blood Pressure 119/45 142/44 (mmHg) O2 Sat by Pulse 97 96 Oximetry Oxygen Devices in Use Now: None Appearance: Elderly male sitting up in bed in NAD Eyes: No Scleral Icterus Ears/Nose/Mouth/Throat: Mucous Membranes Moist Neck: Trachea Midline Respiratory: Symmetrical Chest Expansion and Respiratory Effort, Clear to Auscultation, - - Diminished Cardiovascular: NL Sounds; No Murmurs; No JVD, No Edema Abdominal: NL Sounds; No Tenderness; No Distention Extremities: No Edema Skin: No Rash or Ulcers Neurological: Alert and Oriented x 3, NL Muscle Strength and Tone, - - Very hard of hearing, essentially deaf per his Nutrition: Taking PO's Result Diagrams: 03/12/17 01:30 03/13/17 05:46 Additional Lab and Data: Lab Results 03/12/17 03/12/17 03/12/17 Range/Units 01:30 01:30 01:30 WBC 8.4 (3.5-10.8) 10^3/ul RBC 4.50 (4.0-5.4) 10^6/ul Hgb 11.5 L (14.0-18.0) g/dl Hct 36 L (42-52) % MCV 79 L (80-94) fL MCH 26 L (27-31) pg MCHC 32 (31-36) g/dl RDW 18 H (10.5-15) % Plt Count 277 (150-450) 10^3/ul MPV 7 L (7.4-10.4) um3 Neut % (Auto) 77.4 (38-83) % Lymph % (Auto) 11.3 L (25-47) % Worth % (Auto) 9.5 H (1-9) % Eos % (Auto) 0.9 (0-6) % Baso % (Auto) 0.9 (0-2) % Absolute Neuts (auto) 6.5 (1.5-7.7) 10^3/ul Absolute Lymphs (auto) 1.0 (1.0-4.8) 10^3/ul Absolute Monos (auto) 0.8 (0-0.8) 10^3/ul Absolute Eos (auto) 0.1 (0-0.6) 10^3/ul Absolute Basos (auto) 0.1 (0-0.2) 10^3/ul Absolute Nucleated RBC 0 10^3/ul Nucleated RBC % 0 INR (Anticoag Therapy) 1.12 H (0.89-1.11) APTT 30.7 (26.0-36.3) seconds Sodium 136 (133-145) mmol/L Potassium 3.7 (3.5-5.0) mmol/L Chloride 99 L (101-111) mmol/L Carbon Dioxide 28 (22-32) mmol/L Anion Gap 9 (2-11) mmol/L BUN 25 H (6-24) mg/dL Creatinine 1.40 H (0.67-1.17) mg/dL Est GFR ( Amer) 61.9 (>60) Est GFR (Non-Af Amer) 48.2 (>60) BUN/Creatinine Ratio 17.9 (8-20) Glucose 113 H (70-100) mg/dL Lactic Acid (0.5-2.0) mmol/L Calcium 8.6 (8.6-10.3) mg/dL Magnesium 1.2 L (1.9-2.7) mg/dL Total Bilirubin 1.30 H (0.2-1.0) mg/dL AST 225 H (13-39) U/L ALT 118 H (7-52) U/L Alkaline Phosphatase 122 H (34-104) U/L Total Creatine Kinase 21 (10-223) U/L CK-MB (CK-2) 1.1 (0.6-6.3) ng/mL Troponin I 0.04 H* (<0.04) ng/mL C-Reactive Protein 48.92 H (< 5.00) mg/L B-Natriuretic Peptide ( - 100) pg/mL Total Protein 5.8 L (6.4-8.9) g/dL Albumin 3.2 (3.2-5.2) g/dL Globulin 2.6 (2-4) g/dL Albumin/Globulin Ratio 1.2 (1-3) Lipase 13 (11.0-82.0) U/L TSH Pending 03/12/17 03/12/17 Range/Units 01:30 01:30 WBC (3.5-10.8) 10^3/ul RBC (4.0-5.4) 10^6/ul Hgb (14.0-18.0) g/dl Hct (42-52) % MCV (80-94) fL MCH (27-31) pg MCHC (31-36) g/dl RDW (10.5-15) % Plt Count (150-450) 10^3/ul MPV (7.4-10.4) um3 Neut % (Auto) (38-83) % Lymph % (Auto) (25-47) % Worth % (Auto) (1-9) % Eos % (Auto) (0-6) % Baso % (Auto) (0-2) % Absolute Neuts (auto) (1.5-7.7) 10^3/ul Absolute Lymphs (auto) (1.0-4.8) 10^3/ul Absolute Monos (auto) (0-0.8) 10^3/ul Absolute Eos (auto) (0-0.6) 10^3/ul Absolute Basos (auto) (0-0.2) 10^3/ul Absolute Nucleated RBC 10^3/ul Nucleated RBC % INR (Anticoag Therapy) (0.89-1.11) APTT (26.0-36.3) seconds Sodium (133-145) mmol/L Potassium (3.5-5.0) mmol/L Chloride (101-111) mmol/L Carbon Dioxide (22-32) mmol/L Anion Gap (2-11) mmol/L BUN (6-24) mg/dL Creatinine (0.67-1.17) mg/dL Est GFR ( Amer) (>60) Est GFR (Non-Af Amer) (>60) BUN/Creatinine Ratio (8-20) Glucose (70-100) mg/dL Lactic Acid 0.9 (0.5-2.0) mmol/L Calcium (8.6-10.3) mg/dL Magnesium (1.9-2.7) mg/dL Total Bilirubin (0.2-1.0) mg/dL AST (13-39) U/L ALT (7-52) U/L Alkaline Phosphatase (34-104) U/L Total Creatine Kinase (10-223) U/L CK-MB (CK-2) (0.6-6.3) ng/mL Troponin I (<0.04) ng/mL C-Reactive Protein (< 5.00) mg/L B-Natriuretic Peptide 263 H ( - 100) pg/mL Total Protein (6.4-8.9) g/dL Albumin (3.2-5.2) g/dL Globulin (2-4) g/dL Albumin/Globulin Ratio (1-3) Lipase (11.0-82.0) U/L TSH Assess/Plan/Problems-Billing Assessment: Mr Tapia is an 86 yo male with a PMH of DM, HTN, Afib, and a subdural hematoma from fall while on anticoagulaton who was admitted on 03/11/17 with weakness. - Patient Problems (1) Weakness Comment: Improved today. Chronic and progressive per report. states that he has "been going down hill" for the past three years. She has required assistance of EMS to get patient off ground with many recent falls. MRI negative, but does show history of chronic small vessel ischemia. CT chest/abd/ pelvis ordered given pleural effusion and splenomegaly noted on abd US. No evidence of neoplasm. (2) Pleural effusion Comment: Large right pleural effusion. No evidence of infection. ? CHF given associated weakness and no metastatic findings on CT scan of chest/abd/pelvis. Plan to check echo. (3) CKD stage 3 due to type 2 diabetes mellitus Comment: At baseline. (4) Afib Comment: Rate is controlled. Not on AC due to h/o SDH. (5) CAD (coronary artery disease) Comment: Asymptomatic. Continue plavix and aspirin. (6) Diabetes Comment: BG well controlled. Hold metformin, continue lispro SSI coverage with meals. (7) HTN (hypertension) Comment: Controlled. Continue isosorbide and metoprolol and furosemide. (8) Hyperlipidemia Comment: Continue atorvastatin. (9) DVT prophylaxis Comment: Heparin SQ. (10) Full code status Status and Disposition: Inpatient. Patient's hopeful to take him home but may need NH placement. oxidized finish plater following.
[2017-03-13] MEDS: Insulin LISPRO* 1 UNITS UNIT SUBCUT SCH ×4 (08:38→20:57)
[2017-03-13] MEDS: Oxybutynin XL TAB* 5 MG PO SCH ×2 (09:40→10:04)
[2017-03-13] MEDS: Isosorbide Mononitrate ER TAB* 30 MG PO SCH (09:40)
[2017-03-13] MEDS: Cholecalciferol TAB* 1000 UNITS PO SCH ×2 (09:40→10:04)
[2017-03-13] MEDS: Furosemide TAB* 20 MG PO SCH (09:41)
[2017-03-13] MEDS: Magnesium Oxide TAB* 400 MG PO SCH (09:41)
[2017-03-13] MEDS: Sertraline* 50 MG TAB PO SCH (09:41)
[2017-03-13] MEDS: Clopidogrel TAB* 75 MG PO SCH (09:42)
[2017-03-13] MEDS: Metoprolol Tartrate TAB* 25 MG PO SCH ×2 (09:42→17:56)
[2017-03-13] MEDS: Potassium Chloride LIQUID* 20 MEQ PACKET PO SCH ×3 (09:42→19:46)
[2017-03-13] MEDS: CMCS: Pantoprazole TAB (NF) 40 MG TAB PO SCH ×3 (09:42→21:41)
[2017-03-13] MEDS: Aspirin EC Low Dose* 81 MG TAB.EC PO SCH (09:42)
--- NOTE | 2017-03-13 14:42 | ECHO ---
Patient: GISELLE BURGESS [facility] Rec#: [id number] : 1930 Date: 03/13/2017 Age: 86y Height: 170.2 cm / 67.0 in Weight: 79.8 kg / 175.9 lbs Sex: M BSA: 1.9 Room#: 403 Admit Date#: 03/12/2017 Type: Inpatient Referring: Cristine Millan NP Reading: Alfred Cormier MD Central Supply Technician Supervisor: Aretha Sanchez RN RDCS CC: Lance Leonard MD Transthoracic Echocardiogram Indication: Cardiomegaly, right pleural effusion BP: 142/44 HR: 75 Rhythm: A-Flutter Findings History: A. fib, 23mm bovine pericardial AVR, DM, HLD, HTN, subdural hematoma, CKD, sleep apnea Technical Comments: The study quality is poor. The study is technically limited due to poor acoustic windows. Completed at 1350. Left Ventricle: The left ventricular chamber size is decreased. Mild to moderate concentric left ventricular hypertrophy is observed. Global left ventricular wall motion and contractility are within normal limits. There is normal left ventricular systolic function. The estimated ejection fraction is 60-65%. Ventricular septal wall motion has a post-operative appearance. The assessment of diastolic function is non-diagnostic. Left Atrium: The left atrium is mild to moderately dilated. Right Ventricle: The right ventricle is not well visualized. The right ventricular cavity size is normal. Right Atrium: The right atrium is mild to moderately dilated. Aortic Valve: The aortic valve structure is not well visualized. There is mild to moderate aortic regurgitation. The mean gradient of the aortic valve is 7.3 mmHg. The peak instantaneous gradient of the aortic valve is 12 mmHg. Dimensionless index is 0.51-0.62. A bovine bio-prosthetic aortic valve is present. Mitral Valve: Severe mitral annular calcification present. The mitral valve leaflets are mildly thickened. There is mild to moderate mitral regurgitation. There is mild mitral stenosis. The mean gradient across the mitral valve is 4 mmHg. Tricuspid Valve: The tricuspid valve structure is not well visualized. There is trace tricuspid regurgitation. The TR jet waveform is suboptimal for accurate PA pressure analysis. Unable to estimate the right ventricular systolic pressure. Pulmonic Valve: The pulmonic valve structure is not well visualized. There is mild pulmonic regurgitation. There is no pulmonic stenosis. Pericardium: There is no significant pericardial effusion. Aorta: The ascending aorta is not well visualized. The aortic arch is not well visualized. There is no dilation of the aortic root. Pulmonary Artery: The main pulmonary artery is not well visualized. Venous: The venous system is not well visualized. The inferior vena cava is not visualized. Conclusions Poor quality study fro interpretation. The study is technically limited due to poor acoustic windows. Off axis images are noted. Mild to moderate concentric left ventricular hypertrophy is observed. There is normal left ventricular systolic function. The estimated ejection fraction is 60-65%. The assessment of diastolic function is non-diagnostic. The left atrium is mild to moderately dilated. The right atrium is mild to moderately dilated. There is mild to moderate aortic regurgitation. The mean gradient of the aortic valve is 7.3 mmHg. A bovine bio-prosthetic aortic valve is present. Severe mitral annular calcification present. There is mild to moderate mitral regurgitation. There is mild mitral stenosis. There is mild pulmonic regurgitation. There is trace tricuspid regurgitation. The TR jet waveform is suboptimal for accurate PA pressure analysis. Compared to report of study from 01/29/2016 , the degree of aortic regurgitation appears mildly increased from mild to mild to moderate. The degree of mitral regurgitation has increased (was trace). Measurements Name Value Normal Range RVDdMajor (2D) 3.9 cm (2.2 - 4.4) RAd ISD 4CH 5.7 cm (3.4 - 4.9) RA (A4C)W 4.7 cm (2.9 - 4.6) IVSd (2D) 1.2 cm (0.6 - 1) LVPWd (2D) 1 cm (0.6 - 1) LVIDd (2D) 3.4 cm (3.6 - 5.4) LVIDs (2D) 2.3 cm - LV FS (2D) 33 % (25 - 45) Aortic Annulus 1.9 cm (1.4 - 2.6) Ao root diameter (2D) 2.1 cm (2.1 - 3.5) LA dimension (AP) 2D 3.2 cm (2.3 - 3.8) LAd ISD 4CH 5.2 cm (2.9 - 5.3) LA ISD 4CH W 6.2 cm (2.5 - 4.5) Name Value Normal Range LA ESV SP 4CH (A/L) 90 ml - LA ESV SP 2CH (A/L) 38 ml - LA ESV BP (A/L) 64 ml - LA ESV BP (A/L) index 34 ml/m2 - LA ESV SP 4CH (MOD) 75 ml - LA ESV SP 2CH (MOD) 35 ml - Name Value Normal Range MV E-wave Vmax 1.6 m/sec - MV deceleration time 327 msec - LV septal e' Vmax 0.06 m/sec - LV lateral e' Vmax 0.09 m/sec - LV E:e' septal ratio 26.7 ratio - LV E:e' lateral ratio 16.8 ratio - Name Value Normal Range AV Vmax 1.8 m/sec - AV VTI 39.4 cm - AV peak gradient 12 mmHg - AV mean gradient 7.3 mmHg - LVOT diameter 1.8 cm - LVOT Vmax 0.93 m/sec - LVOT VTI 24.5 cm - LVOT peak gradient 3.5 mmHg - LVOT mean gradient 2 mmHg - DOI (VTI) 0.62 ratio - DOI (Vmax) 0.51 ratio - SUKHWINDER (continuity Vmax) 1.3 cm2 - SUKHWINDER (continuity VTI) 1.6 cm2 - Name Value Normal Range MV Vmax 1.8 m/sec - MV VTI 41.7 cm - MV peak gradient 13.7 mmHg - MV mean gradient 4 mmHg - MV PHT 95 msec - MVA (PHT) 2.3 cm2 - MVA (continuity VTI) 1.6 cm2 - Name Value Normal Range TR Vmax 2.7 m/sec - TR peak gradient 29 mmHg - RAP 8 mmHg - RVSP 37 mmHg - Name Value Normal Range PV Vmax 0.65 m/sec -
[2017-03-14] MEDS: Heparin VIAL(*) 5000 UNITS/ML VIAL (FIVE THOUSAND) SUBCUT SCH (06:09)
[2017-03-14] MEDS: Insulin LISPRO* 1 UNITS UNIT SUBCUT SCH ×2 (07:44→11:53)
--- NOTE | 2017-03-14 08:48 | PN ---
Subjective Date of Service: 03/14/17 Interval History: Mr. Tapia nods that he is feeling well today and states he has no complaints. Objective Active Medications: Aspirin (Aspirin Ec Low Dose*) 81 mg PO DAILY DEQUAN Cholecalciferol (Vitamin D Tab*) 2,000 units PO DAILY DEQUAN Clopidogrel Bisulfate (Plavix Tab*) 75 mg PO DAILY [facility] Dextrose (D50w Syringe 50 Ml*) 12.5 gm IV PUSH .FOR FS < 60 - SS PRN Furosemide (Lasix Tab*) 60 mg PO DAILY DEQUAN Gadoteridol (Prohance* (Contrast)) 14 ml IV ONCE DEQUAN Heparin Sodium (Porcine) (Heparin Vial(*)) 5,000 units SUBCUT Q8HR DEQUAN Insulin Human Lispro (Humalog*) 0 units SUBCUT ACHS DEQUAN Isosorbide Mononitrate (Imdur Er Tab*) 30 mg PO DAILY DEQUAN Magnesium Oxide (Magox 400 Tab*) 400 mg PO DAILY DEQUAN Metoprolol Tartrate (Lopressor Tab*) 50 mg PO BID WITH MEALS DEQUAN Oxybutynin Chloride (Ditropan Xl Tab*) 10 mg PO DAILY DEQUAN Pantoprazole Sodium (Protonix Tab (Nf)) 40 mg PO BID DEQUAN Potassium Chloride (Klor-Con Liquid*) 20 meq PO DAILY WITH MEAL DEQUAN Sertraline HCl (Zoloft*) 150 mg PO QAM [facility] Vital Signs 03/13/17 03/13/17 03/13/17 15:33 17:55 19:56 Temperature 98.1 F 98.0 F Pulse Rate 77 70 76 Respiratory 16 15 Rate Blood Pressure 118/45 118/47 132/47 (mmHg) O2 Sat by Pulse 98 98 Oximetry 03/13/17 03/13/17 03/14/17 20:00 23:19 03:15 Temperature 98.0 F Pulse Rate 62 56 Respiratory 20 16 16 Rate Blood Pressure 119/37 118/38 (mmHg) O2 Sat by Pulse 98 95 Oximetry 03/14/17 07:37 Temperature Pulse Rate 54 Respiratory 16 Rate Blood Pressure 141/45 (mmHg) O2 Sat by Pulse 97 Oximetry Oxygen Devices in Use Now: None Appearance: Elderly male sitting up in chair in NAD Eyes: No Scleral Icterus Ears/Nose/Mouth/Throat: Mucous Membranes Moist Neck: Trachea Midline Respiratory: Symmetrical Chest Expansion and Respiratory Effort, Clear to Auscultation Cardiovascular: NL Sounds; No Murmurs; No JVD, No Edema Abdominal: NL Sounds; No Tenderness; No Distention Lymphatic: No Cervical Adenopathy Extremities: No Edema Skin: No Rash or Ulcers Neurological: Alert and Oriented x 3, NL Muscle Strength and Tone Nutrition: Taking PO's Result Diagrams: 03/12/17 01:30 03/13/17 05:46 Additional Lab and Data: Lab Results 03/12/17 03/12/17 03/12/17 Range/Units 01:30 01:30 01:30 WBC 8.4 (3.5-10.8) 10^3/ul RBC 4.50 (4.0-5.4) 10^6/ul Hgb 11.5 L (14.0-18.0) g/dl Hct 36 L (42-52) % MCV 79 L (80-94) fL MCH 26 L (27-31) pg MCHC 32 (31-36) g/dl RDW 18 H (10.5-15) % Plt Count 277 (150-450) 10^3/ul MPV 7 L (7.4-10.4) um3 Neut % (Auto) 77.4 (38-83) % Lymph % (Auto) 11.3 L (25-47) % Sumner % (Auto) 9.5 H (1-9) % Eos % (Auto) 0.9 (0-6) % Baso % (Auto) 0.9 (0-2) % Absolute Neuts (auto) 6.5 (1.5-7.7) 10^3/ul Absolute Lymphs (auto) 1.0 (1.0-4.8) 10^3/ul Absolute Monos (auto) 0.8 (0-0.8) 10^3/ul Absolute Eos (auto) 0.1 (0-0.6) 10^3/ul Absolute Basos (auto) 0.1 (0-0.2) 10^3/ul Absolute Nucleated RBC 0 10^3/ul Nucleated RBC % 0 INR (Anticoag Therapy) 1.12 H (0.89-1.11) APTT 30.7 (26.0-36.3) seconds Sodium 136 (133-145) mmol/L Potassium 3.7 (3.5-5.0) mmol/L Chloride 99 L (101-111) mmol/L Carbon Dioxide 28 (22-32) mmol/L Anion Gap 9 (2-11) mmol/L BUN 25 H (6-24) mg/dL Creatinine 1.40 H (0.67-1.17) mg/dL Est GFR ( Amer) 61.9 (>60) Est GFR (Non-Af Amer) 48.2 (>60) BUN/Creatinine Ratio 17.9 (8-20) Glucose 113 H (70-100) mg/dL Lactic Acid (0.5-2.0) mmol/L Calcium 8.6 (8.6-10.3) mg/dL Magnesium 1.2 L (1.9-2.7) mg/dL Total Bilirubin 1.30 H (0.2-1.0) mg/dL AST 225 H (13-39) U/L ALT 118 H (7-52) U/L Alkaline Phosphatase 122 H (34-104) U/L Total Creatine Kinase 21 (10-223) U/L CK-MB (CK-2) 1.1 (0.6-6.3) ng/mL Troponin I 0.04 H* (<0.04) ng/mL C-Reactive Protein 48.92 H (< 5.00) mg/L B-Natriuretic Peptide ( - 100) pg/mL Total Protein 5.8 L (6.4-8.9) g/dL Albumin 3.2 (3.2-5.2) g/dL Globulin 2.6 (2-4) g/dL Albumin/Globulin Ratio 1.2 (1-3) Lipase 13 (11.0-82.0) U/L TSH Pending 03/12/17 03/12/17 Range/Units 01:30 01:30 WBC (3.5-10.8) 10^3/ul RBC (4.0-5.4) 10^6/ul Hgb (14.0-18.0) g/dl Hct (42-52) % MCV (80-94) fL MCH (27-31) pg MCHC (31-36) g/dl RDW (10.5-15) % Plt Count (150-450) 10^3/ul MPV (7.4-10.4) um3 Neut % (Auto) (38-83) % Lymph % (Auto) (25-47) % Sumner % (Auto) (1-9) % Eos % (Auto) (0-6) % Baso % (Auto) (0-2) % Absolute Neuts (auto) (1.5-7.7) 10^3/ul Absolute Lymphs (auto) (1.0-4.8) 10^3/ul Absolute Monos (auto) (0-0.8) 10^3/ul Absolute Eos (auto) (0-0.6) 10^3/ul Absolute Basos (auto) (0-0.2) 10^3/ul Absolute Nucleated RBC 10^3/ul Nucleated RBC % INR (Anticoag Therapy) (0.89-1.11) APTT (26.0-36.3) seconds Sodium (133-145) mmol/L Potassium (3.5-5.0) mmol/L Chloride (101-111) mmol/L Carbon Dioxide (22-32) mmol/L Anion Gap (2-11) mmol/L BUN (6-24) mg/dL Creatinine (0.67-1.17) mg/dL Est GFR ( Amer) (>60) Est GFR (Non-Af Amer) (>60) BUN/Creatinine Ratio (8-20) Glucose (70-100) mg/dL Lactic Acid 0.9 (0.5-2.0) mmol/L Calcium (8.6-10.3) mg/dL Magnesium (1.9-2.7) mg/dL Total Bilirubin (0.2-1.0) mg/dL AST (13-39) U/L ALT (7-52) U/L Alkaline Phosphatase (34-104) U/L Total Creatine Kinase (10-223) U/L CK-MB (CK-2) (0.6-6.3) ng/mL Troponin I (<0.04) ng/mL C-Reactive Protein (< 5.00) mg/L B-Natriuretic Peptide 263 H ( - 100) pg/mL Total Protein (6.4-8.9) g/dL Albumin (3.2-5.2) g/dL Globulin (2-4) g/dL Albumin/Globulin Ratio (1-3) Lipase (11.0-82.0) U/L TSH Assess/Plan/Problems-Billing Assessment: Mr Tapia is an 86 yo male with a PMH of DM, HTN, Afib, and a subdural hematoma from fall while on anticoagulaton who was admitted on 03/11/17 with weakness. - Patient Problems (1) Weakness Comment: Improved. Chronic and progressive per report. states that he has "been going down hill" for the past three years. MRI negative, but does show history of chronic small vessel ischemia. CT chest/abd/pelvis ordered given pleural effusion and splenomegaly noted on abd US, no evidence of neoplasm. PT eval found patient to need minimal assist with mobility at this point. (2) Pleural effusion Comment: Large right pleural effusion. No evidence of infection. Suspected related to CHF given absence of metastatic findings on CT scan of chest/abd/ pelvis. However, echo found intact EF and no evidence of significant wall motion or valvular abnormality. Pleural effusion has been present since Sep 2016. Patient's does not want further work up at this time. (3) CKD stage 3 due to type 2 diabetes mellitus Comment: At baseline. (4) Afib Comment: Rate is controlled. Not on AC due to h/o SDH. (5) CAD (coronary artery disease) Comment: Asymptomatic. Continue plavix and aspirin. (6) Diabetes Comment: BG well controlled. Hold metformin, continue lispro SSI coverage with meals. (7) HTN (hypertension) Comment: Controlled. Continue isosorbide and metoprolol and furosemide. (8) Hyperlipidemia Comment: Continue atorvastatin. (9) DVT prophylaxis Comment: Heparin SQ. (10) Full code status Status and Disposition: Inpatient. Discharge to home with hospital bed and wheelchair. [facility]NS will visit and is looking in to hiring someone from [employer].
[2017-03-14] MEDS: Metoprolol Tartrate TAB* 25 MG PO SCH (09:08)
[2017-03-14] MEDS: Furosemide TAB* 20 MG PO SCH (09:08)
[2017-03-14] MEDS: CMCS: Pantoprazole TAB (NF) 40 MG TAB PO SCH (09:08)
[2017-03-14] MEDS: Cholecalciferol TAB* 1000 UNITS PO SCH (09:09)
[2017-03-14] MEDS: Clopidogrel TAB* 75 MG PO SCH (09:09)
[2017-03-14] MEDS: Aspirin EC Low Dose* 81 MG TAB.EC PO SCH (09:10)
[2017-03-14] MEDS: Sertraline* 50 MG TAB PO SCH (09:10)
[2017-03-14] MEDS: Isosorbide Mononitrate ER TAB* 30 MG PO SCH (09:10)
[2017-03-14] MEDS: Oxybutynin XL TAB* 5 MG PO SCH (09:10)
[2017-03-14] MEDS: Magnesium Oxide TAB* 400 MG PO SCH (09:11)
[2017-03-14] MEDS: Potassium Chloride LIQUID* 20 MEQ PACKET PO SCH (09:16)
[2017-03-14 18:38] VITALS: BP 139/55
--- NOTE | 2017-03-14 23:54 | DS ---
CC: Lance Leonard MD * DISCHARGE SUMMARY: DATE OF ADMISSION: 03/12/17 DATE OF DISCHARGE: 03/14/17 PRIMARY CARE PHYSICIAN: Lance Leonard MD ATTENDING PHYSICIAN: Dr. Watson Pisano *(dictation provided by Cristine Millan NP ) PRIMARY DIAGNOSIS: Weakness, now resolved. SECONDARY DIAGNOSES: 1. Right-sided pleural effusion, chronic since September 2016. 2. Nephrolithiasis. 3. Type 2 diabetes, noninsulin-dependent. 4. Hypertension. 5. Gastroesophageal reflux disease. 6. Atrial fibrillation. 7. History of subdural hematoma in the setting of fall, on anticoagulation. 8. Hyperlipidemia. 9. Depression. PAST SURGICAL HISTORY: 1. 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 2. Cataract surgery. MEDICATIONS AT THE TIME OF DISCHARGE: 1. Furosemide 60 mg daily. 2. Coenzyme Q10 200 mg daily. 3. Metoprolol tartrate 50 mg twice daily. 4. Isosorbide 30 mg daily. 5. Oxybutynin 10 mg daily. 6. Omeprazole 20 mg twice daily. 7. Metformin 500 mg twice daily. 9. Cholecalciferol 2000 units daily. 10. Aspirin 81 mg daily. 11. Plavix 75 mg daily. 12. Atorvastatin 40 mg daily. 13. Sertraline 50 mg daily. 14. Potassium chloride 20 mEq daily. HOSPITAL COURSE: Mr. Tapia is an 86-year-old male with past medical history as outlined above, who presented to the hospital on 03/12/17 with concern for weakness. Please see the dictated H and P from Dr. Maldondao for full details. In brief, the patient's ultimately reported that the patient had had several years of declining function. Recently, he has been falling at home and she has been unable to get him off the ground and has required help from EMS. This occurred on the pony ride attendant hours of the and therefore she brought him to the emergency room for evaluation. Mr. Tapia was admitted to the hospital. His labs showed no leukocytosis. His electrolytes were normal. His BUN and creatinine were normal. He has no evidence of urinary tract infection. He did have some elevated LFTs with AST 225, ALT 118, alk phos 122 and a total bilirubin of 1.3. For this reason, he did go on to have an abdominal ultrasound, which was read as follows: "Large right pleural effusion, cholelithiasis, and splenomegaly". Because of this pleural effusion and splenomegaly, there was concern that perhaps Mr. Tapia had an underlying carcinoma and he did go for a chest, abdomen, and pelvis CT which though without contrast did not show any mass. It again confirmed the moderate to large right pleural effusion and reads as follows: "Increased density in the right lower lobe likely representing atelectasis along the inferior aspect of the right lower lobe, this becomes more rounded in shape possibly representing a mass versus round atelectasis. Enlarged mediastinal lymph node". Because of the presence of the significant pleural effusion with no clear etiology, the patient went on for transthoracic echocardiogram, which showed that it was unchanged from 2016 and that he had good ejection fraction with no significant valvular abnormality. The remainder of his workup included a brain CT on admission which showed concern for a possible brain stem mass. 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 Mr. Tapia has been doing better. He is now able to ambulate with minimal assist. He is up and eating meals and oriented x3. I suspect that his symptoms are related to his history of infarcts and diffuse involutional change in the brain and which would cause him to have these waxing and waning episodes of weakness. He has no evidence of infection. I did discuss at length with the patient's about the possibility of further investigation, specifically for possible diagnostic thoracentesis of his right pleural effusion; however, the patient's feels that a workup is sufficient and she is not interested in pursuing anything more aggressive at this time. Mr. Tapia is medically stable for discharge to home to follow up with his primary care physician. DISPOSITION: To home. DIET: Low salt, consistent carbohydrate. ACTIVITY: As tolerated. FOLLOWUP PLANS: The patient will follow up with Dr. Leonard or his associate in the next week regarding this acute hospitalization. TIME SPENT: Approximately 60 minutes were spent on the discharge of this patient, more than half that time was spent with the patient at the bedside reviewing the events leading up to this hospitalization with the , performing the physical examination and reviewing the plan of care with her as well. [facility] MANAGER [id number]/[facility] #: [id number] [facility] HOSPITALIrving
== END 2017-03-14 17:45 | disposition home or self-care (01) | DRG 57 ==
LOC: ED 23:36 → MED 03-12 04:07
PROVIDERS: ADMIT Internal Medicine; ATTEND Internal Medicine
DX: I69.898 Other sequelae of other cerebrovascular disease (principal); J90 Pleural effusion, not elsewhere classified; E11.22 Type 2 diabetes mellitus with diabetic chronic kidney disease; I13.0 Hypertensive heart and chronic kidney disease with heart failure and stage 1 through stage 4 chronic kidney disease, or unspecified chronic kidney disease; I50.9 Heart failure, unspecified; I48.91 Unspecified atrial fibrillation; R16.1 Splenomegaly, not elsewhere classified; Z91.048 Other nonmedicinal substance allergy status; N18.3 Chronic kidney disease, stage 3 (moderate); I25.10 Atherosclerotic heart disease of native coronary artery without angina pectoris; Z95.4 Presence of other heart-valve replacement; G47.30 Sleep apnea, unspecified; K21.9 Gastro-esophageal reflux disease without esophagitis; Z87.442 Personal history of urinary calculi; Z98.42 Cataract extraction status, left eye; Z98.41 Cataract extraction status, right eye; F32.9 Major depressive disorder, single episode, unspecified; Z85.828 Personal history of other malignant neoplasm of skin; Z96.651 Presence of right artificial knee joint; Z82.3 Family history of stroke; Z87.891 Personal history of nicotine dependence; Z83.6 Family history of other diseases of the respiratory system; E78.5 Hyperlipidemia, unspecified; Z91.81 History of falling; R53.1 Weakness; Z79.82 Long term (current) use of aspirin; Z79.02 Long term (current) use of antithrombotics/antiplatelets; K80.20 Calculus of gallbladder without cholecystitis without obstruction; R59.0 Localized enlarged lymph nodes; Z66 Do not resuscitate; Z79.84 Long term (current) use of oral hypoglycemic drugs
CPT/HCPCS: 36415; 70450; 70553; 71010; 71260; 74177; 76700; 80053; 80074; 81003; 81015; 82140; 82550; 82553; 83605; 83690; 83735; 83880; 84443; 84484; 85025; 85610; 85730; 86140; 87040; 93005; 93306; A9270-GY; A9579; J0456; J0696; J1644; Q9967